=== PATIENT | male | born 1975 | race Two or more races ===

== ENCOUNTER 2019-11-12 10:23 | Outpatient (CLI) | payer OTHER | END 2019-11-12 10:50 | disposition home or self-care (01) | LOC: MRI 10:23 | PROVIDERS: ATTEND Physical Medicine & Rehabilitation | DX: M17.11 Unilateral primary osteoarthritis, right knee (principal); M23.222 Derangement of posterior horn of medial meniscus due to old tear or injury, left knee | CPT/HCPCS: 73721 ==